=== PATIENT | male | born 1960 ===

== ENCOUNTER 2024-05-13 06:18 | Day surgery (SDC) | payer OTHER, SELFPAY ==
[2024-05-05 13:43] VITALS: BMI 25.6
[2024-05-13 08:24] VITALS: BP 169/87
[2024-05-13 08:31] VITALS: BMI 25.6
[2024-05-13] MEDS: TYLENOL 1000 MG PO (08:36)
--- NOTE | 2024-05-13 08:57 | W.SUR.PREOP ---
Pre-Operative Surgical Note
-
I have examined this patient prior to the performance of the scheduled procedure.
The patient's condition is unchanged from the time of the current History and
Physical and the patient is able to undergo the scheduled procedure.
[2024-05-13 12:07] VITALS: BP 149/78; BP 169/87
[2024-05-13 12:15] VITALS: BP 155/85
--- NOTE | 2024-05-13 12:39 | W.IMMPOSTOP ---
Surgical Immed Post Op Note
-
Primary Surgeon: Bhavin Sue MD
Assisting Surgeon: None
Finishing Range Operator: TOMMIE Carlisle
Pre-op Diagnosis: Bilateral inguinal hernias, umbilical hernia
Post-op Diagnosis: Same
Procedure Performed:
1. Robotic bilateral inguinal hernia repairs with mesh (JACQUE approach)
2. Open umbilical hernia repair with mesh
Anesthesia Type: General
Specimen / Cultures: None
Estimated Blood Loss: 11 cc
Complications: None
Operative Findings: Bilateral direct inguinal hernias containing preperitoneal fat right greater than left, small indirect inguinal hernias also noted bilaterally. No femoral defects. No cord lipomas. The critical view of the myopectineal orifice
was obtained bilaterally and the MPO was reinforced with an extra-large right and a large left 3D Max Bard soft uncoated polypropylene mesh. A standard umbilical herniorraphy was performed and noted to have preperitoneal fat. The defect measured 2
cm. The defect was reinforced with a 4.5 cm piece of round Bard soft mesh placed in the preperitoneal space and then closed with 0 PDS suture. Pneumoperitoneum was briefly reestablished to confirm no exposure of the mesh.
[2024-05-13 13:40] VITALS: BP 154/85
[2024-05-13 13:55] VITALS: BP 165/83
[2024-05-13 14:26] VITALS: BP 149/87
--- NOTE | 2024-05-13 17:12 | OR.RPT ---
Operative Report
Operative Report
Patient Name: Vitaly Sanchez
: 1960
Date of Operation: 05/13/2024
Preoperative Diagnosis: Bilateral inguinal hernias, umbilical hernia
Postoperative Diagnosis: Same
Procedure(s):
1. Robotic bilateral inguinal Hernia Repairs with mesh, (JACQUE approach)
2. Open umbilical hernia repair with mesh
Surgeon(s):
Dr. Sue
Anthropology Instructor(s):
TOMMIE Carlisle
Anesthesia: General
Estimated Blood Loss: 11 cc
Urine Output: None
Drains/Lines/Implants: XLarge right, and large left 3D Max Bard mid weight uncoated polypropylene mesh. 4.5 cm Bard soft uncoated polypropylene mesh for the umbilical hernia
Specimens: None
Indication for surgery: The patient has a history of groin pain and noted on exam to have bilateral inguinal Hernia(s) as well as an umbilical hernia. Following review of therapeutic options they have elected to undergo a minimally invasive repair
of his inguinal hernias and an open umbilical hernia.
Operative Findings: Bilateral direct inguinal hernias containing preperitoneal fat right greater than left, small indirect inguinal hernias also noted bilaterally. No femoral defects. No cord lipomas. The critical view of the myopectineal orifice
was obtained bilaterally and the MPO was reinforced with an extra-large right and a large left 3D Max Bard soft uncoated polypropylene mesh. A standard umbilical herniorraphy was performed and noted to have preperitoneal fat. The defect measured 2
cm. The defect was reinforced with a 4.5 cm piece of round Bard soft mesh placed in the preperitoneal space and then closed with 0 PDS suture. Pneumoperitoneum was briefly reestablished to confirm no exposure of the mesh.
Details of the operation:
The patient was brought to the Operating Room and placed in the supine position with the arms tucked. IV antibiotics were infused and Venodyne stockings placed. Following uneventful induction of general endotracheal anesthesia, an orogastric tube
were placed. The abdomen was prepped and draped in the usual sterile fashion. The abdomen was entered using a Veress technique which required 1 pass, pneumoperitoneum to 15 mmHg was obtained without difficulty. An 8mm trochar was passed through
the abdominal wall roughly 20 cm cephalad to the inguinal canal. We then confirmed that no inadvertent injury was made while passing the trocar or Veress needle. We then placed two additional 8 mm ports in the left upper and right upper quadrants.
We then docked the robot with a Prograsper in the left hand port and monopolar scissors in the right. Bilateral inguinal defects were noted. We then began by creating a flap at the level of the ASIS on the right side laterally working our way
medially to the medial umbilical fold. Staying onto the peritoneum we were able to circumferentially dissect around the hernia sac and and peel it off of the underlying spermatic cord and testicular vessels, taking care to preserve them. Medially
we identified the midline pubis as well as Alessio's ligament and ensured to dissect 2 cm below the pubic rim over the bladder. After exposure of the entire myopectineal orifice we identified and reduced: A small indirect inguinal hernia, large
direct inguinal hernia, no femoral hernia and no cord lipoma. This was then repeated on the left side with the exact same findings however the right direct inguinal hernia was larger than the left.
We then fixated a large 3D max mesh with a 2-0 Vicryl stitch at coopers medially and superior laterally on the left side and an extra-large 3D max mesh on the right. The flaps were then closed with a running 2-0 barbed monocryl suture ensuring that
the tail was cut flush with the medial fat pad so that no barbs were exposed. During the closure of the flap an Angiocath was inserted and 20 cc of quarter percent Marcaine was instilled. The area in the flap cavity was then evacuated of air
confirming that the mesh was flush and there were no folds. A small rent in the peritoneum was noted and closed with 2-0 Vicryl. All needles and instruments were then removed and the robot was undocked. The abdomen was then desufflated, and
pneumoperitoneum evacuated. We then turned our attention to the umbilicus and an infraumbilical incision was made. The hernia sac was isolated off of the umbilical stalk and appeared to contain just preperitoneal fat. The defect however was
fairly large at 2 cm. The preperitoneal space was enlarged and a 4.5 cm round Bard soft mesh was placed into this cavity. It was secured while closing the umbilical defect with of interrupted [id number] 0 PDS suture. The umbilical stalk was
then tacked down with 3-0 Vicryl. Because we already had peritoneal access pneumoperitoneum was reestablished and a camera was used to confirm that no mesh was exposed and that our hernia repair was airtight. Pneumoperitoneum was once again
evacuated. All skin sites were then closed with 4-0 Monocryl followed by Dermabond. Counts were correct and overall, the patient tolerated the procedure well and was taken to the Recovery Room postoperatively in stable condition.
I was the attending physician and performed the procedure with assistance of the CIRCUIT BOARD ASSEMBLER above. I was present for all portions of the case, excluding skin closure.
Bhavin Sue MD
== END 2024-05-13 14:48 | disposition home or self-care (01) ==
LOC: SDS 06:18
PROVIDERS: ATTENDING PHYSICIAN Surgery; FAMILY PHYSICIAN Physician Assistant
DX: K40.20 Bilateral inguinal hernia, without obstruction or gangrene, not specified as recurrent (principal); K42.9 Umbilical hernia without obstruction or gangrene
CPT/HCPCS: 49650; 49591; 36415; 93005; C1781